=== PATIENT | female | born 1970 | race Caucasian/White ===

== ENCOUNTER 2016-08-29 16:29 | Emergency (ER) | payer MEDICARE ==
[~2016-08-29 16:29] MED LIST: ALPRAZOLAM0.5 MG PO; AZITHROMYCIN250 MG PO; CELEBREX400 MG PO; HABITROL 21 MG P1 EA TD; KEFLEX500 MG PO; LYRICA100 MG PO; MUCINEX600 MG PO; NORCO 10-325 T1 EACH PO; SULFAZINE500 MG PO
== END 2016-08-29 16:39 | disposition left against medical advice (07) ==
LOC: ER1 16:29
DX: Z53.21 Procedure and treatment not carried out due to patient leaving prior to being seen by health care provider (principal)

== ENCOUNTER 2016-10-07 10:42 | Emergency (ER) | payer SELFPAY | END 2016-10-07 12:15 | disposition home or self-care (01) | LOC: ER1 10:42 | DX: S39.012A Strain of muscle, fascia and tendon of lower back, initial encounter (principal); F17.210 Nicotine dependence, cigarettes, uncomplicated; M19.90 Unspecified osteoarthritis, unspecified site; Z88.5 Allergy status to narcotic agent; Z79.891 Long term (current) use of opiate analgesic; Z79.1 Long term (current) use of non-steroidal anti-inflammatories (NSAID); Z79.899 Other long term (current) drug therapy; V43.62XA Car passenger injured in collision with other type car in traffic accident, initial encounter; Y92.410 Unspecified street and highway as the place of occurrence of the external cause | CPT/HCPCS: 72100; 96372; 99284; J1885 ==

== ENCOUNTER 2016-10-16 19:32 | Inpatient (IN) | payer MEDICARE, OTHER ==
[~2016-10-16] VITALS: Ht 167.6 cm; Wt 72.6 kg
[2016-10-16 20:28] LABS: HEMOGLOBIN 14.4 gm/dl (12.3-15.3); RED BLOOD COUNT 4.95 M/UL (4.00-5.10); WHITE BLOOD COUNT 15.3 K/UL (4.5-11.0)
[2016-10-16 20:44] LABS: BUN/CREATININE RATIO 19 (0-10)
[2016-10-17 06:11] LABS: HEMOGLOBIN 14.4 gm/dl (12.3-15.3); RED BLOOD COUNT 4.95 M/UL (4.00-5.10); WHITE BLOOD COUNT 16.8 K/UL (4.5-11.0)
[2016-10-17 06:32] LABS: BUN/CREATININE RATIO 18 (0-10)
[2016-10-18 04:54] LABS: HEMOGLOBIN 15.5 gm/dl (12.3-15.3)
[2016-10-18 04:56] LABS: RED BLOOD COUNT 5.46 M/UL (4.00-5.10); WHITE BLOOD COUNT 23.4 K/UL (4.5-11.0)
[2016-10-18 05:12] LABS: BUN/CREATININE RATIO 24 (0-10)
[2016-10-19 04:44] LABS: BUN/CREATININE RATIO 40 (0-10)
[2016-10-19 05:00] LABS: HEMOGLOBIN 15.8 gm/dl (12.3-15.3); RED BLOOD COUNT 5.51 M/UL (4.00-5.10); WHITE BLOOD COUNT 17.9 K/UL (4.5-11.0)
[2016-10-20 04:52] LABS: HEMOGLOBIN 15.3 gm/dl (12.3-15.3); RED BLOOD COUNT 5.24 M/UL (4.00-5.10); WHITE BLOOD COUNT 12.5 K/UL (4.5-11.0)
[2016-10-20 05:06] LABS: BUN/CREATININE RATIO 20 (0-10)
[2016-10-20] MEDS ORDERED: POTASSIUM CHLO20 ME2 PO (14:44)
[2016-10-20] MEDS ORDERED: LEVAQUIN TAB 5500 MG PO (14:45)
[2016-10-20] MEDS ORDERED: PRIMIDONE50 MG PO (14:47)
== END 2016-10-20 15:05 | disposition home or self-care (01) | DRG 896 ==
LOC: ER1 19:32 → ZEROF 23:00 → MED SURG 4 23:00
PROVIDERS: Emergency Medicine; ADMIT Internal Medicine
PROC: 0HQ0XZZ Repair Scalp Skin, External Approach (ICD-10-PCS; principal; 2016-10-16)
PROC: 3E0234Z Introduction of Serum, Toxoid and Vaccine into Muscle, Percutaneous Approach (ICD-10-PCS; 2016-10-16)
DX: F13.239 Sedative, hypnotic or anxiolytic dependence with withdrawal, unspecified (principal); J69.0 Pneumonitis due to inhalation of food and vomit; T42.4X5A Adverse effect of benzodiazepines, initial encounter; S01.01XA Laceration without foreign body of scalp, initial encounter; W18.30XA Fall on same level, unspecified, initial encounter; Z23 Encounter for immunization; E87.6 Hypokalemia; R25.1 Tremor, unspecified; D72.829 Elevated white blood cell count, unspecified; F17.210 Nicotine dependence, cigarettes, uncomplicated; G89.29 Other chronic pain; Z91.19 Patient's noncompliance with other medical treatment and regimen; F41.9 Anxiety disorder, unspecified; Z79.1 Long term (current) use of non-steroidal anti-inflammatories (NSAID); Z79.899 Other long term (current) drug therapy; Z88.5 Allergy status to narcotic agent
CPT/HCPCS: 12001; 36415; 70450; 70553; 71010; 71020; 72125; 80048; 80053; 83690; 83735; 84132; 84484; 84703; 85025; 85027; 87040; 87086; 90471; 90715; 93005; 95816; 96361; 96374; 97116; 99285; A9577; J2060; J2405; Q0163

== ENCOUNTER 2016-11-08 09:49 | Inpatient (IN) | payer MEDICARE ==
[~2016-11-08] VITALS: Ht 167.6 cm; Wt 69.7 kg
[~2016-11-08 09:49] MED LIST changes: +LEVAQUIN TAB 5500 MG PO; +POTASSIUM CHLO20 ME2 PO; +PRIMIDONE50 MG PO
[2016-11-08 11:26] LABS: HEMOGLOBIN 13.9 gm/dl (12.3-15.3); RED BLOOD COUNT 4.75 M/UL (4.00-5.10); WHITE BLOOD COUNT 14.5 K/UL (4.5-11.0)
[2016-11-08 12:06] LABS: BUN/CREATININE RATIO 7 (0-10)
[2016-11-08] MEDS ORDERED: ALPRAZOLAM0.5 MG PO (20:12)
[2016-11-09 02:39] LABS: HEMOGLOBIN 11.5 gm/dl (12.3-15.3); RED BLOOD COUNT 4.02 M/UL (4.00-5.10); WHITE BLOOD COUNT 14.5 K/UL (4.5-11.0)
[2016-11-09 02:52] LABS: BUN/CREATININE RATIO 22 (0-10)
[2016-11-10 05:42] LABS: HEMOGLOBIN 11.7 gm/dl (12.3-15.3); RED BLOOD COUNT 4.08 M/UL (4.00-5.10); WHITE BLOOD COUNT 15.1 K/UL (4.5-11.0)
[2016-11-10 05:59] LABS: BUN/CREATININE RATIO 22 (0-10)
[2016-11-11 05:46] LABS: RED BLOOD COUNT 4.47 M/UL (4.00-5.10); WHITE BLOOD COUNT 14.5 K/UL (4.5-11.0)
[2016-11-11 06:04] LABS: BUN/CREATININE RATIO 8 (0-10)
[2016-11-11] MEDS ORDERED: CLEOCIN 150MG150 MG PO (18:23)
[2016-11-11] MEDS ORDERED: PROAIR HFA8.5 GM INH (18:25)
== END 2016-11-11 17:38 | disposition home or self-care (01) | DRG 917 ==
LOC: ER1 09:49 → ZEROF 13:57 → M/S 19:09
PROVIDERS: Preventive Medicine Occupational Medicine; ADMIT Internal Medicine
DX: T42.4X1A Poisoning by benzodiazepines, accidental (unintentional), initial encounter (principal); J69.0 Pneumonitis due to inhalation of food and vomit; E87.2 Acidosis; Z88.8 Allergy status to other drugs, medicaments and biological substances; Z79.899 Other long term (current) drug therapy; F17.210 Nicotine dependence, cigarettes, uncomplicated; M06.9 Rheumatoid arthritis, unspecified; M13.0 Polyarthritis, unspecified; D72.829 Elevated white blood cell count, unspecified; D64.9 Anemia, unspecified
CPT/HCPCS: 36415; 36600; 71010; 80048; 80053; 80307; 81001; 82150; 82550; 82553; 82803; 83605; 83690; 83735; 83874; 84484; 85025; 87040; 93005; 94640; 94664; 96374; 96375; 99285; J0696; J1335; J2405; J2543; J2930; J7030; J7050

== ENCOUNTER 2020-09-29 14:34 | Emergency (ER) | payer MEDICARE ==
[~2020-09-29 14:34] MED LIST changes: +CLEOCIN 150MG150 MG PO; +PROAIR HFA8.5 GM INH
[2020-09-29 16:36] LABS: HEMOGLOBIN 15.1 gm/dl (12.3-15.3); RED BLOOD COUNT 5.4 M/UL (4.00-5.10); WHITE BLOOD COUNT 20.9 K/UL (4.5-11.0)
[2020-09-29 16:58] LABS: BUN/CREATININE RATIO 13 (0-10)
[2020-09-29] MEDS ORDERED: KEPPRA500 MG PO (17:23)
== END 2020-09-29 18:00 | disposition home or self-care (01) ==
LOC: ER1 14:34
PROVIDERS: Family Medicine
DX: R56.9 Unspecified convulsions (principal); F17.200 Nicotine dependence, unspecified, uncomplicated
CPT/HCPCS: 70450; 71045; 72125; 80053; 82550; 82553; 83874; 84484; 85025; 96374; 99285; J1953

== ENCOUNTER 2020-10-06 16:56 | Emergency (ER) | payer MEDICARE ==
[~2020-10-06 16:56] MED LIST changes: +KEPPRA500 MG PO
[2020-10-06 17:56] LABS: HEMOGLOBIN 14.7 gm/dl (12.3-15.3); RED BLOOD COUNT 5.06 M/UL (4.00-5.10); WHITE BLOOD COUNT 9.3 K/UL (4.5-11.0)
[2020-10-06 18:14] LABS: BUN/CREATININE RATIO 15 (0-10)
== END 2020-10-06 21:05 | disposition home or self-care (01) ==
LOC: ER1 16:56
PROVIDERS: Physician Assistant
DX: T42.4X1A Poisoning by benzodiazepines, accidental (unintentional), initial encounter (principal); Z79.899 Other long term (current) drug therapy
CPT/HCPCS: 71045; 80053; 80307; 82550; 82553; 82962; 83874; 84484; 85025; 93005; 96374; 99284; G0480

== ENCOUNTER 2020-11-03 14:13 | Emergency (ER) | payer MEDICARE ==
[2020-11-03] MEDS ORDERED: NORFLEX 100 MG100 MG PO (15:39)
[2020-11-03] MEDS ORDERED: BACTROBAN OINT22 GM EXT (15:39)
[2020-11-03] MEDS ORDERED: NAPROSYN EC 50500 MG PO (15:39)
[2020-11-03] MEDS ORDERED: MEDROL DOSEPAK 24 MG PO (15:39)
== END 2020-11-03 15:53 | disposition home or self-care (01) ==
LOC: ER1 14:13
DX: S80.861A Insect bite (nonvenomous), right lower leg, initial encounter (principal); M54.5 Low back pain; G40.909 Epilepsy, unspecified, not intractable, without status epilepticus; F17.210 Nicotine dependence, cigarettes, uncomplicated; Z88.5 Allergy status to narcotic agent; Z79.899 Other long term (current) drug therapy; W57.XXXA Bitten or stung by nonvenomous insect and other nonvenomous arthropods, initial encounter
CPT/HCPCS: 93005; 96372; 99283; J1885; J2930